=== PATIENT | female | born 1975 | race Caucasian/White ===

== ENCOUNTER 2022-08-09 15:20 | Emergency (ER) | payer BC ==
[2022-08-09] MEDS ORDERED: HYDROmorphone 0.5 MG/0.5 ML Syringe SUBCUT STA (17:31)
[2022-08-09] MEDS ORDERED: Ondansetron 4 MG Tab.DIS PO ONE (17:32)
[2022-08-09] MEDS ORDERED: Take Home: Acetaminophen/HYDROcodone 325-5 MG, 2 Tab Pack PO ONE (17:46)
[2022-08-09] MEDS ORDERED: Take Home: Ondansetron 4 MG Tab.DIS, 2 Tab Pack PO ONE (17:47)
== END 2022-08-09 18:37 | disposition home or self-care (01) ==
LOC: CC.ED 15:20
DX: S82.102A Unspecified fracture of upper end of left tibia, initial encounter for closed fracture (principal); S80.02XA Contusion of left knee, initial encounter; Z88.5 Allergy status to narcotic agent; Z88.8 Allergy status to other drugs, medicaments and biological substances; W18.30XA Fall on same level, unspecified, initial encounter
CPT/HCPCS: 73562-LT; 96372; 99283; A9270-GY; J1170